=== PATIENT | female | born 1925 | race Caucasian/White ===

== ENCOUNTER 2016-08-18 12:31 | Emergency (ER) | payer SELFPAY ==
[~2016-08-18] VITALS: Ht 149.9 cm; Wt 48.9 kg
[2016-08-18] MEDS ORDERED: MONT10TA21 PO (12:46)
[2016-08-18] MEDS ORDERED: METH2.5 PO (12:46)
[2016-08-18] MEDS ORDERED: THEO400T3 PO (12:46)
[2016-08-18] MEDS ORDERED: OMEP10 PO (12:46)
[2016-08-18] MEDS ORDERED: LEVO25TA9 PO (12:46)
[2016-08-18] MEDS ORDERED: METO5TAB95 PO (12:46)
[2016-08-18] MEDS ORDERED: NAPR-58 PO (12:46)
[2016-08-18 12:56] LABS: GLUCOSE,POINT OF CARE 248 MG/DL (70-110)
[2016-08-18 13:06] LABS: HEMATOCRIT 33.9 % (36-46); HEMOGLOBIN 11.3 g/dL (12.0-16.0); MEAN CORPUSCULAR HEMOGLOBIN 29.3 pg (26.0-34.0); MEAN CORPUSCULAR HGB CONC 33.3 G/dL (31.0-37.0); MEAN CORPUSCULAR VOLUME 88 fL (80-100); PLATELET COUNT (AUTO) 219 K/uL (150-450); RED BLOOD CELL COUNT(AUTO) 3.86 MIL/uL (4.00-5.20); RED CELL DISTRIBUTION WIDTH 19.2 % (11.5-14.5); WHITE BLOOD COUNT (AUTO) 9.4 K/uL (4.5-11.0)
[2016-08-18 13:19] LABS: ANION GAP 7 mmol/L (8-16); CALCIUM, TOTAL 8.8 mg/dL (8.8-10.5); CARBON DIOXIDE 26 mmol/L (22-29); CHLORIDE 104 mmol/L (98-107); CREATININE 0.89 mg/dL (0.60-1.30); GLOMERULAR FILTR. RATE CALC 60 mL/min (>60); PROTHROMBIN TIME 10.5 SEC (9.4-11.6); SODIUM SERUM 137 mmol/L (136-145); UREA NITROGEN, BLOOD 19 mg/dL (7-18)
[2016-08-18 13:25] LABS: BAND NEUTROPHILS % (MANUAL) 11 % (1-5); BASOPHILS % (MANUAL) 1 % (0-2); LYMPHOCYTES % (MANUAL) 7 % (22-44); RBC MORPHOLOGY COMMENT ABNORMAL R; TOTAL CELLS COUNTED 100
[2016-08-18 13:34] LABS: B-TYPE NATRIURETIC PEPTIDE 341 pg/mL (0-100)
[2016-08-18 13:44] LABS: ALANINE AMINOTRANSFERASE 12 U/L (12-78); ALBUMIN 3.1 g/dL (3.4-5.0); ASPARTATE AMINOTRANSFERASE 23 U/L (15-37); BILIRUBIN,TOTAL 0.6 mg/dL (0.1-1.0); CREATINE KINASE MB 0.7 ng/mL (0-5); CREATINE KINASE, TOTAL 87 U/L (26-192); TOTAL PROTEIN, SERUM 6.6 g/dL (6.4-8.2)
[2016-08-18 15:14] LABS: APPEARANCE,URINE CLOUDY (CLEAR); GLUCOSE, URINE (UA) 500 mg/dL (NEGATIVE); KETONES,URINE NEGATIVE (NEGATIVE); LEUKOCYTE ESTERASE ,URINE NEGATIVE (NEGATIVE); OCCULT BLOOD,URINE SMALL (NEGATIVE); PH,URINE 8.5 (5.0-8.0); PROTEIN,URINE POS 1+ (NEGATIVE)
[2016-08-18 15:15] LABS: ADD UA MICROSCOPIC YES
[2016-08-18 15:20] LABS: SQUAMOUS EPITHELIAL CELL,UR Few /LPF (None Seen); WBC,URINE None Seen /HPF (0-5)
[2016-08-18 16:41] VITALS: BP 96/63
== END 2016-08-18 18:44 | disposition home or self-care (01) ==
LOC: EMS 12:34
DX: M79.1 Myalgia (principal); J45.909 Unspecified asthma, uncomplicated; I10 Essential (primary) hypertension; Z95.0 Presence of cardiac pacemaker
CPT/HCPCS: 74022; 82962; 93005; 99285